=== PATIENT | male | born 1970 | race Caucasian/White ===

== ENCOUNTER 2017-04-07 11:46 | Inpatient (IN) | payer MEDICAID ==
[~2017-04-07] VITALS: Ht 180.3 cm; Wt 65.6 kg
[~2017-04-07 11:46] MED LIST: ALPR0.5T6 PO; ALPR1TAB2 PO; HYDR-3237 PO; METH-356 PO; METH40TA3 PO; NICO1PAT13 TD; OXYC5TAB3 PO; PREG100C PO; PREG25CA PO; TAMS-11 PO
[2017-04-07] MEDS ORDERED: HYDR-3307 PO (12:00)
[2017-04-07] MEDS ORDERED: KETAMINE 100 MG/ML, 5ML IV ONE (12:00)
[2017-04-07] MEDS ORDERED: FLUO10CA13 PO (12:00)
[2017-04-07] MEDS ORDERED: METH40TA3 PO (12:00)
[2017-04-07] MEDS ORDERED: FLUO40CA9 PO (12:00)
[2017-04-07] MEDS ORDERED: PREG200C PO (12:00)
[2017-04-07 12:32] LABS: HEMATOCRIT 40.8 % (39.2-51.8); HEMOGLOBIN 13.7 g/dL (13.7-18.0); WHITE BLOOD COUNT 10.7 x10^3/uL (3.4-10)
[2017-04-07 12:44] LABS: BLOOD UREA NITROGEN 17 mg/dL (7-18)
[2017-04-07 12:48] LABS: ASPARTATE AMINO TRANSFERASE 24 U/L (15-37)
[2017-04-07] MEDS ORDERED: FAMOTIDINE 20 MG/2 ML IVPush ONE (15:30)
[2017-04-07] MEDS ORDERED: TIZANIDINE 4MG TABLET PO ONE (16:00)
[2017-04-07 16:04] LABS: DAU SCREEN DISCLAIMER
[2017-04-07] MEDS ORDERED: FAMOTIDINE 20 MG/2 ML ONE (16:05)
[2017-04-07 16:42] VITALS: BP 130/77
[2017-04-07] MEDS ORDERED: BISACODYL 10 MG SUPP PR PRN ×2 (17:00→22:30)
[2017-04-07] MEDS ORDERED: ONDANSETRON 2MG/ML, 2ML IVPush PRN ×2 (17:00→22:30)
[2017-04-07] MEDS ORDERED: POLYETHYLENE GLYCOL 17 GM PACKET PO PRN (17:00)
[2017-04-07] MEDS ORDERED: PROMETHAZINE 25 MG/ML, 1ML IM PRN ×2 (17:00→22:30)
[2017-04-07] MEDS ORDERED: DOCUSATE 100 MG CAPSULE PO PRN ×2 (17:00→22:30)
[2017-04-07] MEDS ORDERED: ACETAMINOPHEN 325 MG TABLET PO PRN ×2 (17:00→22:30)
[2017-04-07] MEDS ORDERED: ENOXAPARIN 40 MG/0.4 ML SQ SCH (17:00)
[2017-04-07] MEDS ORDERED: methylPREDNISolone SOD SUCC 125 MG/2 ML IVPush SCH (17:00)
[2017-04-07] MEDS: TIZANIDINE 4MG TABLET PO SCH (17:26)
[2017-04-07] MEDS: HYDROcodone/APAP 10/325 MG TABLET PO PRN (17:26)
[2017-04-07 19:13] VITALS: BP 96/45
[2017-04-07] MEDS: FAMOTIDINE 20 MG TABLET PO SCH (21:37)
[2017-04-07] MEDS: PREGABALIN 200 MG CAPSULE PO SCH (21:37)
[2017-04-07 21:38] VITALS: BP 94/50
[2017-04-07 23:32] VITALS: BP 107/65
[2017-04-08 01:32] VITALS: BP 104/64
[2017-04-08] MEDS: TIZANIDINE 4MG TABLET PO SCH ×3 (01:34→16:34)
[2017-04-08 04:55] LABS: HEMATOCRIT 43.3 % (39.2-51.8); HEMOGLOBIN 14.6 g/dL (13.7-18.0); WHITE BLOOD COUNT 11.2 x10^3/uL (3.4-10)
[2017-04-08 05:07] LABS: BLOOD UREA NITROGEN 16 mg/dL (7-18)
[2017-04-08 05:10] LABS: ASPARTATE AMINO TRANSFERASE 15 U/L (15-37)
[2017-04-08 08:05] VITALS: BP 105/66
[2017-04-08] MEDS ORDERED: FLUOXETINE 10 MG CAP PO SCH (09:00)
[2017-04-08] MEDS ORDERED: SENNA/DOCUSATE TABLET PO SCH (09:00)
[2017-04-08] MEDS ORDERED: METHADONE 10 MG TABLET ONE (09:05)
[2017-04-08] MEDS: METHADONE 40 MG TABLET.SOL PO SCH (09:07)
[2017-04-08] MEDS: PREGABALIN 200 MG CAPSULE PO SCH ×3 (09:08→20:31)
[2017-04-08] MEDS: TAMSULOSIN 0.4 MG CAP.ER.24H PO SCH (09:08)
[2017-04-08] MEDS: FAMOTIDINE 20 MG TABLET PO SCH ×2 (09:08→20:31)
[2017-04-08] MEDS: SENNA/DOCUSATE TABLET PO SCH ×2 (09:09→10:03)
[2017-04-08] MEDS: FLUOXETINE 10 MG CAP PO SCH (09:09)
[2017-04-08 14:16] VITALS: BP 117/61
[2017-04-08] MEDS: HYDROcodone/APAP 10/325 MG TABLET PO PRN ×3 (14:20→21:11)
[2017-04-08] MEDS: ENOXAPARIN 40 MG/0.4 ML SQ SCH (16:34)
[2017-04-08 19:57] VITALS: BP 98/58
[2017-04-09 03:17] VITALS: BP 108/67
[2017-04-09] MEDS: TIZANIDINE 4MG TABLET PO SCH ×3 (03:46→16:51)
[2017-04-09 05:23] LABS: BLOOD UREA NITROGEN 26 mg/dL (7-18)
[2017-04-09 05:34] LABS: HEMATOCRIT 39.3 % (39.2-51.8); HEMOGLOBIN 13.3 g/dL (13.7-18.0); WHITE BLOOD COUNT 13.2 x10^3/uL (3.4-10)
[2017-04-09] MEDS: HYDROcodone/APAP 10/325 MG TABLET PO PRN ×3 (07:15→19:42)
[2017-04-09 07:36] VITALS: BP 112/71
[2017-04-09] MEDS ORDERED: METHADONE 10 MG TABLET ONE (10:01)
[2017-04-09] MEDS: TAMSULOSIN 0.4 MG CAP.ER.24H PO SCH (10:03)
[2017-04-09] MEDS: PREGABALIN 200 MG CAPSULE PO SCH ×3 (10:03→21:42)
[2017-04-09] MEDS: FAMOTIDINE 20 MG TABLET PO SCH ×2 (10:03→21:42)
[2017-04-09] MEDS: FLUOXETINE 10 MG CAP PO SCH (10:03)
[2017-04-09] MEDS: METHADONE 40 MG TABLET.SOL PO SCH (10:03)
[2017-04-09] MEDS: SENNA/DOCUSATE TABLET PO SCH (10:03)
[2017-04-09 12:04] VITALS: BP 118/65
[2017-04-09] MEDS: ENOXAPARIN 40 MG/0.4 ML SQ SCH (16:51)
[2017-04-09 21:32] VITALS: BP 118/71
[2017-04-09] MEDS: NICOTINE 14MG/24 HR PATCH.TD24 TD SCH (21:42)
[2017-04-09] MEDS ORDERED: OMNIPAQUE 350 MG/ML, 100ML BOTTLE ONE (22:35)
[2017-04-10] MEDS: HYDROcodone/APAP 10/325 MG TABLET PO PRN ×3 (01:45→17:16)
[2017-04-10] MEDS: TIZANIDINE 4MG TABLET PO SCH ×3 (01:45→17:11)
[2017-04-10 02:22] VITALS: BP 122/73
[2017-04-10 05:00] LABS: HEMATOCRIT 40.4 % (39.2-51.8); HEMOGLOBIN 13.4 g/dL (13.7-18.0); WHITE BLOOD COUNT 16.3 x10^3/uL (3.4-10)
[2017-04-10 05:16] LABS: BLOOD UREA NITROGEN 25 mg/dL (7-18)
[2017-04-10 07:28] VITALS: BP 122/72
[2017-04-10] MEDS: FLUOXETINE 10 MG CAP PO SCH (10:17)
[2017-04-10] MEDS: PREGABALIN 200 MG CAPSULE PO SCH ×3 (10:17→20:45)
[2017-04-10] MEDS: TAMSULOSIN 0.4 MG CAP.ER.24H PO SCH (10:17)
[2017-04-10] MEDS: METHADONE 40 MG TABLET.SOL PO SCH (10:18)
[2017-04-10] MEDS: SENNA/DOCUSATE TABLET PO SCH (10:18)
[2017-04-10] MEDS: FAMOTIDINE 20 MG TABLET PO SCH (10:18)
[2017-04-10 13:00] VITALS: BP 113/77
[2017-04-10 13:29] VITALS: BP 131/79
[2017-04-10] MEDS: POLYETHYLENE GLYCOL 17 GM PACKET PO SCH (15:58)
[2017-04-10] MEDS ORDERED: BISACODYL 5 MG EC TABLET PO PRN (16:00)
[2017-04-10] MEDS ORDERED: MAGNESIUM HYDROXIDE 8%, 30ML UDC PO PRN (16:00)
[2017-04-10] MEDS: ENOXAPARIN 40 MG/0.4 ML SQ SCH (17:11)
[2017-04-10 19:14] VITALS: BP 135/83
[2017-04-10] MEDS: NICOTINE 14MG/24 HR PATCH.TD24 TD SCH (20:46)
[2017-04-11 00:21] VITALS: BP 126/81
[2017-04-11] MEDS: TIZANIDINE 4MG TABLET PO SCH ×3 (00:37→18:29)
[2017-04-11] MEDS: HYDROcodone/APAP 10/325 MG TABLET PO PRN ×4 (00:38→21:18)
[2017-04-11 05:55] LABS: HEMATOCRIT 41.9 % (39.2-51.8); WHITE BLOOD COUNT 12.1 x10^3/uL (3.4-10)
[2017-04-11 06:09] LABS: BLOOD UREA NITROGEN 25 mg/dL (7-18)
[2017-04-11 07:50] VITALS: BP 139/88
[2017-04-11] MEDS ORDERED: BISACODYL 10 MG SUPP PR SCH (09:00)
[2017-04-11] MEDS: SENNA/DOCUSATE TABLET PO SCH (09:47)
[2017-04-11] MEDS: METHADONE 40 MG TABLET.SOL PO SCH (09:47)
[2017-04-11] MEDS: PREGABALIN 200 MG CAPSULE PO SCH ×3 (09:48→20:36)
[2017-04-11] MEDS: POLYETHYLENE GLYCOL 17 GM PACKET PO SCH (09:48)
[2017-04-11] MEDS: TAMSULOSIN 0.4 MG CAP.ER.24H PO SCH (09:48)
[2017-04-11] MEDS: FLUOXETINE 10 MG CAP PO SCH (09:48)
[2017-04-11 14:17] VITALS: BP 122/81
[2017-04-11] MEDS: ENOXAPARIN 40 MG/0.4 ML SQ SCH (18:30)
[2017-04-11 18:55] VITALS: BP 150/88
[2017-04-11] MEDS: NICOTINE 14MG/24 HR PATCH.TD24 TD SCH (20:35)
[2017-04-12 03:08] VITALS: BP 150/88
[2017-04-12] MEDS: TIZANIDINE 4MG TABLET PO SCH ×3 (03:20→21:14)
[2017-04-12] MEDS: HYDROcodone/APAP 10/325 MG TABLET PO PRN ×3 (03:20→16:05)
[2017-04-12 07:30] LABS: BLOOD UREA NITROGEN 27 mg/dL (7-18)
[2017-04-12 07:31] LABS: HEMATOCRIT 43.8 % (39.2-51.8); HEMOGLOBIN 14.7 g/dL (13.7-18.0); WHITE BLOOD COUNT 8.5 x10^3/uL (3.4-10)
[2017-04-12] MEDS: PREGABALIN 200 MG CAPSULE PO SCH ×3 (08:10→21:14)
[2017-04-12] MEDS: POLYETHYLENE GLYCOL 17 GM PACKET PO SCH (08:11)
[2017-04-12] MEDS: TAMSULOSIN 0.4 MG CAP.ER.24H PO SCH (08:11)
[2017-04-12] MEDS: SENNA/DOCUSATE TABLET PO SCH (08:11)
[2017-04-12] MEDS: FLUOXETINE 10 MG CAP PO SCH (08:11)
[2017-04-12 08:50] VITALS: BP 146/84
[2017-04-12] MEDS: METHADONE 40 MG TABLET.SOL PO SCH (08:52)
[2017-04-12 12:55] VITALS: BP 128/79
[2017-04-12] MEDS: ENOXAPARIN 40 MG/0.4 ML SQ SCH (16:05)
[2017-04-12 20:33] VITALS: BP 131/77
[2017-04-12] MEDS: NICOTINE 14MG/24 HR PATCH.TD24 TD SCH (21:14)
[2017-04-13 02:24] VITALS: BP 138/97
[2017-04-13] MEDS: TIZANIDINE 4MG TABLET PO SCH ×2 (03:45→11:38)
[2017-04-13] MEDS: HYDROcodone/APAP 10/325 MG TABLET PO PRN ×3 (05:10→15:27)
[2017-04-13 07:39] VITALS: BP 159/91
[2017-04-13] MEDS: METHADONE 40 MG TABLET.SOL PO SCH (09:00)
[2017-04-13] MEDS ORDERED: AMLODIPINE 5 MG TABLET PO SCH (10:00)
[2017-04-13] MEDS: PREGABALIN 200 MG CAPSULE PO SCH ×2 (10:04→15:27)
[2017-04-13] MEDS: POLYETHYLENE GLYCOL 17 GM PACKET PO SCH (10:04)
[2017-04-13] MEDS: SENNA/DOCUSATE TABLET PO SCH (10:08)
[2017-04-13] MEDS: TAMSULOSIN 0.4 MG CAP.ER.24H PO SCH (10:08)
[2017-04-13] MEDS: FLUOXETINE 10 MG CAP PO SCH (10:08)
[2017-04-13] MEDS ORDERED: PRED20TA PO (12:28)
[2017-04-13] MEDS ORDERED: AMLO5TAB2 PO (12:28)
== END 2017-04-13 16:41 | disposition home health service (06) | DRG 58 ==
LOC: ED 13:48 → 4NOR 14:23 → ED 14:23 → SUATTDRO 15:01 → 4NOR 16:30 → 4WST 04-09 18:50
PROVIDERS: ADMIT Internal Medicine; ATTEND Internal Medicine
DX: G35 Multiple sclerosis (principal); G92 Toxic encephalopathy; R53.2 Functional quadriplegia; F11.20 Opioid dependence, uncomplicated; G89.29 Other chronic pain; K59.00 Constipation, unspecified; R62.7 Adult failure to thrive; M54.9 Dorsalgia, unspecified; T50.905A Adverse effect of unspecified drugs, medicaments and biological substances, initial encounter; Y92.89 Other specified places as the place of occurrence of the external cause; Z87.891 Personal history of nicotine dependence; Z88.0 Allergy status to penicillin; Z88.6 Allergy status to analgesic agent
CPT/HCPCS: 36415; 71010; 74177; 80048; 80053; 80307; 81003; 85025; 93005; 99285; J1650; J2930; Q9967; G0479; J7512; S0028

== ENCOUNTER 2017-06-05 14:27 | Inpatient (IN) | payer MEDICAID ==
[~2017-06-05] VITALS: Ht 180.3 cm; Wt 63.9 kg
[~2017-06-05 14:27] MED LIST changes: +AMLO5TAB2 PO; +FLUO10CA13 PO; +FLUO40CA9 PO; +HYDR-3307 PO; +NICO-486 TD; -NICO1PAT13 TD; +PRED20TA PO; +PREG200C PO
[2017-06-05] MEDS ORDERED: ZOLP-413 PO (14:32)
[2017-06-05] MEDS ORDERED: SODIUM CHLORIDE FLUSH 10ML SYR IVF ONE (15:00)
[2017-06-05 15:14] LABS: HEMATOCRIT 40.2 % (39.2-51.8); HEMOGLOBIN 13.5 g/dL (13.7-18.0); WHITE BLOOD COUNT 11.3 x10^3/uL (3.4-10)
[2017-06-05 15:27] LABS: ASPARTATE AMINO TRANSFERASE 31 U/L (15-37); BLOOD UREA NITROGEN 11 mg/dL (7-18)
[2017-06-05 16:37] LABS: PATH.CAST-FLAG NOT PRESENT; SPERM-FLAG NOT PRESENT; SRC-FLAG NOT PRESENT; XTAL-FLAG NOT PRESENT; YLC-FLAG NOT PRESENT
[2017-06-05] MEDS ORDERED: CEFTRIAXONE PMX 1GM/50ML 50 ML ONE (16:52)
[2017-06-05] MEDS ORDERED: CEFTRIAXONE PMX 1GM/50ML 50 ML IVPB ONE (17:00)
[2017-06-05] MEDS ORDERED: SODIUM CHLORIDE FLUSH 10ML SYR IVF PRN (18:00)
[2017-06-05] MEDS ORDERED: ONDANSETRON 2MG/ML, 2ML IVPush PRN (18:30)
[2017-06-05] MEDS ORDERED: POLYETHYLENE GLYCOL 17 GM PACKET PO PRN (18:30)
[2017-06-05] MEDS ORDERED: BISACODYL 10 MG SUPP PR PRN (18:30)
[2017-06-05] MEDS ORDERED: ACETAMINOPHEN 325 MG TABLET PO PRN (18:30)
[2017-06-05] MEDS: CEFTRIAXONE PMX 1GM/50ML 50 ML IV SCH (19:00)
[2017-06-05 19:31] VITALS: BP 110/71
[2017-06-05] MEDS: SODIUM CHLORIDE 0.9% 1,000 ML IV SCH (22:07)
[2017-06-05] MEDS: NICOTINE 14MG/24 HR PATCH.TD24 TD SCH (22:07)
[2017-06-05] MEDS: PREGABALIN 200 MG CAPSULE PO SCH (22:07)
[2017-06-05] MEDS: HEPARIN 5,000 UNITS/ML, 1ML SQ SCH (22:08)
[2017-06-05] MEDS: HYDROcodone/APAP 10/325 MG TABLET PO PRN (22:11)
[2017-06-05] MEDS: ZOLPIDEM 5MG TABLET PO SCH (22:11)
[2017-06-06 00:20] VITALS: BP 110/70
[2017-06-06 02:17] VITALS: BP 102/67
[2017-06-06] MEDS: HYDROcodone/APAP 10/325 MG TABLET PO PRN ×3 (04:34→17:02)
[2017-06-06 05:13] LABS: HEMATOCRIT 38.2 % (39.2-51.8); WHITE BLOOD COUNT 10.8 x10^3/uL (3.4-10)
[2017-06-06 05:35] LABS: ASPARTATE AMINO TRANSFERASE 41 U/L (15-37); BLOOD UREA NITROGEN 10 mg/dL (7-18)
[2017-06-06 08:00] VITALS: BP 96/69
[2017-06-06] MEDS: HEPARIN 5,000 UNITS/ML, 1ML SQ SCH ×3 (08:57→23:00)
[2017-06-06] MEDS: FLUOXETINE 20 MG CAPSULE PO SCH (08:57)
[2017-06-06] MEDS: PREGABALIN 200 MG CAPSULE PO SCH ×3 (08:57→21:48)
[2017-06-06] MEDS: TAMSULOSIN 0.4 MG CAP.ER.24H PO SCH (08:58)
[2017-06-06] MEDS: SENNA/DOCUSATE TABLET PO SCH (08:58)
[2017-06-06] MEDS ORDERED: AMLODIPINE 5 MG TABLET PO SCH (09:00)
[2017-06-06] MEDS: METHADONE 40 MG TABLET.SOL PO SCH (09:01)
[2017-06-06] MEDS: SODIUM CHLORIDE 0.9% 1,000 ML IV SCH ×2 (09:01→21:48)
[2017-06-06 13:30] VITALS: BP 114/76
[2017-06-06] MEDS: NICOTINE 14MG/24 HR PATCH.TD24 TD SCH (18:14)
[2017-06-06 19:13] VITALS: BP 103/65
[2017-06-06] MEDS: CEFTRIAXONE PMX 1GM/50ML 50 ML IV SCH (19:23)
[2017-06-06] MEDS: ZOLPIDEM 5MG TABLET PO SCH (21:48)
[2017-06-07 00:34] VITALS: BP 129/84
[2017-06-07] MEDS: HYDROcodone/APAP 10/325 MG TABLET PO PRN ×4 (00:55→23:54)
[2017-06-07 05:24] LABS: HEMATOCRIT 39.2 % (39.2-51.8); HEMOGLOBIN 13.2 g/dL (13.7-18.0); WHITE BLOOD COUNT 8.4 x10^3/uL (3.4-10)
[2017-06-07 05:32] LABS: BLOOD UREA NITROGEN 12 mg/dL (7-18)
[2017-06-07 06:50] VITALS: BP 115/83
[2017-06-07] MEDS: SENNA/DOCUSATE TABLET PO SCH (08:57)
[2017-06-07] MEDS: PREGABALIN 200 MG CAPSULE PO SCH ×3 (08:57→20:19)
[2017-06-07] MEDS: FLUOXETINE 20 MG CAPSULE PO SCH (08:57)
[2017-06-07] MEDS: METHADONE 40 MG TABLET.SOL PO SCH (08:57)
[2017-06-07] MEDS: HEPARIN 5,000 UNITS/ML, 1ML SQ SCH ×3 (08:58→20:20)
[2017-06-07] MEDS: TAMSULOSIN 0.4 MG CAP.ER.24H PO SCH (08:58)
[2017-06-07 14:14] VITALS: BP 111/73
[2017-06-07] MEDS: NICOTINE 14MG/24 HR PATCH.TD24 TD SCH (16:42)
[2017-06-07 19:45] VITALS: BP 128/84
[2017-06-07] MEDS: ZOLPIDEM 5MG TABLET PO SCH (20:19)
[2017-06-07] MEDS: CEFDINIR 300 MG CAPSULE PO SCH (20:19)
[2017-06-08 05:02] VITALS: BP 131/88
[2017-06-08 07:30] VITALS: BP 138/89
[2017-06-08] MEDS: SENNA/DOCUSATE TABLET PO SCH (09:04)
[2017-06-08] MEDS: HEPARIN 5,000 UNITS/ML, 1ML SQ SCH ×2 (09:04→15:00)
[2017-06-08] MEDS: HYDROcodone/APAP 10/325 MG TABLET PO PRN (09:04)
[2017-06-08] MEDS: METHADONE 40 MG TABLET.SOL PO SCH (09:04)
[2017-06-08] MEDS: FLUOXETINE 20 MG CAPSULE PO SCH (09:05)
[2017-06-08] MEDS: TAMSULOSIN 0.4 MG CAP.ER.24H PO SCH (09:05)
[2017-06-08] MEDS: CEFDINIR 300 MG CAPSULE PO SCH (09:05)
[2017-06-08] MEDS: PREGABALIN 200 MG CAPSULE PO SCH (09:05)
[2017-06-08] MEDS ORDERED: CIPR500T87 PO (12:12)
[2017-06-08] MEDS ORDERED: LACT1CAP24 PO (12:12)
[2017-06-08] MEDS ORDERED: NICO-486 TD (12:12)
[2017-06-08 13:20] VITALS: BP 117/77
== END 2017-06-08 16:07 | disposition home or self-care (01) | DRG 689 ==
LOC: ED 16:38 → EDIP 17:39 → 3NE 18:47
PROVIDERS: ADMIT Family Medicine; ATTEND Internal Medicine
DX: N39.0 Urinary tract infection, site not specified (principal); R53.2 Functional quadriplegia; I95.9 Hypotension, unspecified; E44.0 Moderate protein-calorie malnutrition; F11.20 Opioid dependence, uncomplicated; G35 Multiple sclerosis; Z68.1 Body mass index [BMI] 19.9 or less, adult; R62.7 Adult failure to thrive; M54.9 Dorsalgia, unspecified; G89.29 Other chronic pain; F17.200 Nicotine dependence, unspecified, uncomplicated; B96.20 Unspecified Escherichia coli [E. coli] as the cause of diseases classified elsewhere; Z88.6 Allergy status to analgesic agent; Z88.8 Allergy status to other drugs, medicaments and biological substances; Z71.6 Tobacco abuse counseling; Z87.440 Personal history of urinary (tract) infections; Z99.3 Dependence on wheelchair; Z83.3 Family history of diabetes mellitus
CPT/HCPCS: 36415; 71010; 80048; 80053; 81001; 83605; 85025; 85610; 85730; 87040; 87077; 87086; 87186; 93005; J0696; J1644; J7030

== ENCOUNTER 2017-07-16 07:10 | Emergency (ER) | payer MEDICAID ==
[~2017-07-16] VITALS: Ht 180.3 cm; Wt 73.0 kg
[~2017-07-16 07:10] MED LIST changes: +CIPR500T87 PO; +LACT1CAP24 PO; +ZOLP-413 PO
[2017-07-16 07:44] LABS: HEMATOCRIT 42.2 % (39.2-51.8); HEMOGLOBIN 14.3 g/dL (13.7-18.0); WHITE BLOOD COUNT 9.2 x10^3/uL (3.4-10)
[2017-07-16 07:56] LABS: BLOOD UREA NITROGEN 15 mg/dL (7-18)
[2017-07-16] MEDS ORDERED: LORazepam 2 MG/ML, 1ML ONE (08:19)
[2017-07-16] MEDS ORDERED: LORazepam 2 MG/ML, 1ML IM ONE (08:30)
[2017-07-16] MEDS ORDERED: LIDOCAINE 1%, 10ML ONE (10:08)
[2017-07-16 10:27] VITALS: BP 120/92
== END 2017-07-16 11:39 | disposition home or self-care (01) ==
LOC: ED 09:22
DX: S01.01XA Laceration without foreign body of scalp, initial encounter (principal); F15.10 Other stimulant abuse, uncomplicated; F17.210 Nicotine dependence, cigarettes, uncomplicated; G62.9 Polyneuropathy, unspecified
CPT/HCPCS: 12001; 36415; 70450; 80048; 81003; 82040; 85025; 96372; 99285; J2060

== ENCOUNTER 2017-10-04 19:37 | Inpatient (IN) | payer MEDICARE, MEDICAID ==
[~2017-10-04] VITALS: Ht 180.3 cm; Wt 70.5 kg
[~2017-10-04 19:37] MED LIST changes: +CEPH-375 PO; +CHOL10003 PO; +GABA300C10 PO
[2017-10-04 21:40] LABS: BASOPHILS # (AUTO) 0.06 x10^3/uL (0-0.1); BASOPHILS % (AUTO) 1 % (0-1); EOSINOPHILS # (AUTO) 0.41 x10^3/uL (0-0.4); EOSINOPHILS % (AUTO) 7 % (1-7); LYMPHOCYTES # (AUTO) 2.61 x10^3/uL (1-3.4); LYMPHOCYTES % (AUTO) 44 % (22-44); MD NO; MEAN CORPUSCULAR HEMOGLOBIN 29.1 pg (27.5-34.5); MEAN CORPUSCULAR HGB CONC 33.5 g/dL (33.2-36.2); MEAN PLATELET VOLUME 9.7 fL (7.4-10.4); MONOCYTES # (AUTO) 0.74 x10^3/uL (0.2-0.8); MONOCYTES % (AUTO) 13 % (2-9); NEUTROPHILS # (AUTO) 2.09 x10^3/uL (1.8-6.8); NEUTROPHILS % (AUTO) 35 % (42-75); PLATELET COUNT 192 x10^3/uL (130-400); RED BLOOD COUNT 4.75 x10^6/uL (4.38-5.82); RED CELL DISTRIBUTION WIDTH 14.2 % (9.4-14.8)
[2017-10-04 21:44] LABS: ALBUMIN 3.5 g/dL (3.4-5.0); ANION GAP 6 mmol/L (5-15); CHLORIDE 106 mmol/L (98-107); CREATININE 0.78 mg/dL (0.7-1.3)
[2017-10-04 21:48] LABS: TROPONIN I < 0.015 ng/mL (0.000-0.045)
[2017-10-04 21:55] LABS: MICROSCOPIC AUTO
[2017-10-04 22:01] LABS: AMPHETAMINE SCREEN, URINE Negative (Negative); BARBITURATE SCREEN, URINE Negative (Negative); BENZODIAZEPINE SCREEN, URINE Positive (Negative); CANNABINOID SCREEN, URINE Positive (Negative); COCAINE SCREEN, URINE Negative (Negative); METHADONE SCREEN, URINE Positive (Negative); OPIATE SCREEN, URINE Positive (Negative)
[2017-10-04 22:10] LABS: CULTURE INDICATED? YES
[2017-10-04] MEDS ORDERED: CEFTRIAXONE PMX 1GM/50ML 50 ML ONE (22:44)
[2017-10-04] MEDS ORDERED: SODIUM CHLORIDE 0.9%, 500ML IVBOLUS ONE (23:00)
[2017-10-04] MEDS ORDERED: CEFTRIAXONE PMX 1GM/50ML 50 ML IVPB ONE (23:00)
[2017-10-04] MEDS ORDERED: ACETAMINOPHEN 325 MG TABLET PO PRN (23:30)
[2017-10-04] MEDS ORDERED: ONDANSETRON 2MG/ML, 2ML IVPush PRN (23:30)
[2017-10-04 23:39] VITALS: BP 144/88
[2017-10-05 01:20] VITALS: BP 124/84
[2017-10-05] MEDS: SODIUM CHLORIDE 0.9% 1,000 ML IV SCH ×4 (02:46→23:40)
[2017-10-05] MEDS: ENOXAPARIN 40 MG/0.4 ML SQ SCH (06:41)
[2017-10-05 07:34] VITALS: BP 143/76
[2017-10-05] MEDS: FLUOXETINE HCL 20 MG CAPSULE PO SCH (08:36)
[2017-10-05] MEDS: CHOLECALCIFEROL 1,000 UNIT TABLET PO SCH (08:36)
[2017-10-05] MEDS: GABAPENTIN 300 MG CAPSULE PO SCH ×3 (08:36→21:10)
[2017-10-05] MEDS: TAMSULOSIN 0.4 MG CAP.ER.24H PO SCH (08:36)
[2017-10-05] MEDS: PREGABALIN 200 MG CAPSULE PO SCH ×3 (08:36→21:10)
[2017-10-05] MEDS: POLYETHYLENE GLYCOL 17 GM PACKET PO SCH (08:37)
[2017-10-05] MEDS: LACTULOSE 10 GM/15 ML UDC PO SCH ×2 (08:37→21:10)
[2017-10-05] MEDS: METHADONE 40 MG TABLET.SOL PO SCH (08:37)
[2017-10-05] MEDS: AMLODIPINE 5 MG TABLET PO SCH (08:41)
[2017-10-05 12:25] VITALS: BP 132/79
[2017-10-05] MEDS ORDERED: CEFTRIAXONE PMX 2GM/50ML 50 ML IV SCH (12:30)
[2017-10-05 20:04] VITALS: BP 130/81
[2017-10-05] MEDS ORDERED: CEFTRIAXONE PMX 1GM/50ML 50 ML IV SCH (23:00)
[2017-10-06 00:46] VITALS: BP 153/88
[2017-10-06 05:42] LABS: BASOPHILS # (AUTO) 0.05 x10^3/uL (0-0.1); BASOPHILS % (AUTO) 1 % (0-1); EOSINOPHILS # (AUTO) 0.32 x10^3/uL (0-0.4); EOSINOPHILS % (AUTO) 6 % (1-7); LYMPHOCYTES # (AUTO) 2.15 x10^3/uL (1-3.4); LYMPHOCYTES % (AUTO) 36 % (22-44); MD NO; MEAN CORPUSCULAR HEMOGLOBIN 29.3 pg (27.5-34.5); MEAN CORPUSCULAR HGB CONC 33.7 g/dL (33.2-36.2); MEAN CORPUSCULAR VOLUME 87.1 fL (81-97); MEAN PLATELET VOLUME 8.9 fL (7.4-10.4); MONOCYTES # (AUTO) 0.71 x10^3/uL (0.2-0.8); MONOCYTES % (AUTO) 12 % (2-9); NEUTROPHILS # (AUTO) 2.73 x10^3/uL (1.8-6.8); NEUTROPHILS % (AUTO) 46 % (42-75); PLATELET COUNT 171 x10^3/uL (130-400); RED BLOOD COUNT 4.32 x10^6/uL (4.38-5.82); RED CELL DISTRIBUTION WIDTH 13.8 % (9.4-14.8)
[2017-10-06] MEDS: ENOXAPARIN 40 MG/0.4 ML SQ SCH (05:43)
[2017-10-06] MEDS: SODIUM CHLORIDE 0.9% 1,000 ML IV SCH ×2 (05:43→13:02)
[2017-10-06 05:55] LABS: ANION GAP 7 mmol/L (5-15); CALCIUM 8.1 mg/dL (8.5-10.1); CHLORIDE 110 mmol/L (98-107)
[2017-10-06 06:00] LABS: ALANINE AMINOTRANSFERASE 20 U/L (12-78); ALKALINE PHOSPHATASE 55 U/L (45-117); BILIRUBIN,TOTAL 0.5 mg/dL (0.2-1.0); CREATININE 0.76 mg/dL (0.7-1.3); TOTAL PROTEIN 5.6 g/dL (6.4-8.2)
[2017-10-06 08:13] VITALS: BP 128/89
[2017-10-06] MEDS: PREGABALIN 200 MG CAPSULE PO SCH ×3 (08:36→21:28)
[2017-10-06] MEDS: METHADONE 40 MG TABLET.SOL PO SCH (08:36)
[2017-10-06] MEDS: POLYETHYLENE GLYCOL 17 GM PACKET PO SCH (08:36)
[2017-10-06] MEDS: GABAPENTIN 300 MG CAPSULE PO SCH ×3 (08:37→21:29)
[2017-10-06] MEDS: CHOLECALCIFEROL 1,000 UNIT TABLET PO SCH (08:37)
[2017-10-06] MEDS: TAMSULOSIN 0.4 MG CAP.ER.24H PO SCH (08:38)
[2017-10-06] MEDS: AMLODIPINE 5 MG TABLET PO SCH (08:38)
[2017-10-06] MEDS: FLUOXETINE HCL 20 MG CAPSULE PO SCH (08:38)
[2017-10-06] MEDS: LACTULOSE 10 GM/15 ML UDC PO SCH ×2 (08:43→21:29)
[2017-10-06 12:51] VITALS: BP 111/68
[2017-10-06] MEDS: CEFTRIAXONE 2 GM in DEXTROSE 5% 50 ML IV SCH (13:02)
[2017-10-06 19:47] VITALS: BP 105/63
[2017-10-07 01:05] VITALS: BP 146/83
[2017-10-07] MEDS: SODIUM CHLORIDE 0.9% 1,000 ML IV SCH ×4 (01:11→23:53)
[2017-10-07] MEDS: ENOXAPARIN 40 MG/0.4 ML SQ SCH (06:04)
[2017-10-07 06:29] VITALS: BP 134/81
[2017-10-07] MEDS: LACTULOSE 10 GM/15 ML UDC PO SCH ×2 (08:09→20:18)
[2017-10-07] MEDS: AMLODIPINE 5 MG TABLET PO SCH (08:10)
[2017-10-07] MEDS: POLYETHYLENE GLYCOL 17 GM PACKET PO SCH (08:10)
[2017-10-07] MEDS: PREGABALIN 200 MG CAPSULE PO SCH ×3 (08:10→20:18)
[2017-10-07] MEDS: TAMSULOSIN 0.4 MG CAP.ER.24H PO SCH (08:10)
[2017-10-07] MEDS: CHOLECALCIFEROL 1,000 UNIT TABLET PO SCH (08:10)
[2017-10-07] MEDS: METHADONE 40 MG TABLET.SOL PO SCH (08:11)
[2017-10-07] MEDS: FLUOXETINE HCL 20 MG CAPSULE PO SCH (08:11)
[2017-10-07] MEDS: GABAPENTIN 300 MG CAPSULE PO SCH ×3 (08:11→20:18)
[2017-10-07 12:00] VITALS: BP 132/85
[2017-10-07] MEDS: CEFTRIAXONE 2 GM in DEXTROSE 5% 50 ML IV SCH (12:40)
[2017-10-07] MEDS ORDERED: BISACODYL 10 MG SUPP PR PRN (14:30)
[2017-10-07] MEDS ORDERED: MAGNESIUM CITRATE 300ML ORAL SOL PO PRN ×2 (14:30)
[2017-10-07] MEDS ORDERED: POLYETHYLENE GLYCOL 17 GM PACKET PO PRN (14:30)
[2017-10-07 19:33] VITALS: BP 105/65
[2017-10-08 02:34] VITALS: BP 113/70
[2017-10-08] MEDS: ENOXAPARIN 40 MG/0.4 ML SQ SCH (05:53)
[2017-10-08] MEDS: SODIUM CHLORIDE 0.9% 1,000 ML IV SCH ×2 (05:53→14:32)
[2017-10-08 06:13] LABS: BASOPHILS # (AUTO) 0.05 x10^3/uL (0-0.1); BASOPHILS % (AUTO) 1 % (0-1); EOSINOPHILS # (AUTO) 0.35 x10^3/uL (0-0.4); EOSINOPHILS % (AUTO) 7 % (1-7); LYMPHOCYTES # (AUTO) 1.99 x10^3/uL (1-3.4); LYMPHOCYTES % (AUTO) 38 % (22-44); MD NO; MEAN CORPUSCULAR HEMOGLOBIN 29.3 pg (27.5-34.5); MEAN CORPUSCULAR HGB CONC 33.9 g/dL (33.2-36.2); MEAN CORPUSCULAR VOLUME 86.6 fL (81-97); MEAN PLATELET VOLUME 8.7 fL (7.4-10.4); MONOCYTES # (AUTO) 0.64 x10^3/uL (0.2-0.8); MONOCYTES % (AUTO) 12 % (2-9); NEUTROPHILS % (AUTO) 42 % (42-75); PLATELET COUNT 168 x10^3/uL (130-400); RED CELL DISTRIBUTION WIDTH 14.4 % (9.4-14.8)
[2017-10-08 06:21] LABS: ALBUMIN 3.1 g/dL (3.4-5.0); ANION GAP 6 mmol/L (5-15); CALCIUM 8.2 mg/dL (8.5-10.1); CHLORIDE 109 mmol/L (98-107)
[2017-10-08 06:24] LABS: ALANINE AMINOTRANSFERASE 14 U/L (12-78); ALKALINE PHOSPHATASE 54 U/L (45-117); BILIRUBIN,TOTAL 0.6 mg/dL (0.2-1.0); CREATININE 0.67 mg/dL (0.7-1.3); TOTAL PROTEIN 5.7 g/dL (6.4-8.2)
[2017-10-08 07:10] VITALS: BP 122/68
[2017-10-08] MEDS: POLYETHYLENE GLYCOL 17 GM PACKET PO SCH (08:18)
[2017-10-08] MEDS: TAMSULOSIN 0.4 MG CAP.ER.24H PO SCH (08:18)
[2017-10-08] MEDS: CHOLECALCIFEROL 1,000 UNIT TABLET PO SCH (08:19)
[2017-10-08] MEDS: GABAPENTIN 300 MG CAPSULE PO SCH ×3 (08:19→19:55)
[2017-10-08] MEDS: PREGABALIN 200 MG CAPSULE PO SCH ×3 (08:19→19:54)
[2017-10-08] MEDS: AMLODIPINE 5 MG TABLET PO SCH (08:19)
[2017-10-08] MEDS: FLUOXETINE HCL 20 MG CAPSULE PO SCH (08:19)
[2017-10-08] MEDS: LACTULOSE 10 GM/15 ML UDC PO SCH ×2 (08:22→19:54)
[2017-10-08] MEDS: METHADONE 40 MG TABLET.SOL PO SCH (08:23)
[2017-10-08 12:47] VITALS: BP 128/80
[2017-10-08] MEDS: CEFTRIAXONE 2 GM in DEXTROSE 5% 50 ML IV SCH (14:25)
[2017-10-08] MEDS: AMPICILLIN/SULBACTAM 3 GM in SODIUM CHLORIDE 0.9% 100 ML IV SCH (17:11)
[2017-10-08 20:03] VITALS: BP 105/65
[2017-10-09] MEDS: AMPICILLIN/SULBACTAM 3 GM in SODIUM CHLORIDE 0.9% 100 ML IV SCH ×3 (01:03→13:39)
[2017-10-09] MEDS: SODIUM CHLORIDE 0.9% 1,000 ML IV SCH ×2 (01:03→03:18)
[2017-10-09 01:41] VITALS: BP 120/70
[2017-10-09 06:58] VITALS: BP 102/66
[2017-10-09] MEDS: ENOXAPARIN 40 MG/0.4 ML SQ SCH (07:26)
[2017-10-09] MEDS ORDERED: METHADONE 10 MG TABLET ONE (08:51)
[2017-10-09] MEDS: METHADONE 40 MG TABLET.SOL PO SCH (08:54)
[2017-10-09] MEDS: TAMSULOSIN 0.4 MG CAP.ER.24H PO SCH (08:54)
[2017-10-09] MEDS: FLUOXETINE HCL 20 MG CAPSULE PO SCH (08:55)
[2017-10-09] MEDS: CHOLECALCIFEROL 1,000 UNIT TABLET PO SCH (08:55)
[2017-10-09] MEDS: GABAPENTIN 300 MG CAPSULE PO SCH ×2 (08:55→15:36)
[2017-10-09] MEDS: PREGABALIN 200 MG CAPSULE PO SCH ×2 (08:55→15:36)
[2017-10-09] MEDS: AMLODIPINE 5 MG TABLET PO SCH (08:56)
[2017-10-09] MEDS: LACTULOSE 10 GM/15 ML UDC PO SCH (08:56)
[2017-10-09] MEDS: POLYETHYLENE GLYCOL 17 GM PACKET PO SCH (08:56)
[2017-10-09 12:00] VITALS: BP 124/77
[2017-10-09] MEDS ORDERED: ACET325T14 PO (12:58)
[2017-10-09] MEDS ORDERED: AMOX1TAB64 PO (12:58)
== END 2017-10-09 16:15 | DRG 58 ==
LOC: ED 22:18 → EDIP 22:38 → 4NOR 23:35
PROVIDERS: ADMIT Hospitalist; ATTEND Hospitalist
PROC: 0T9B70Z Drainage of Bladder with Drainage Device, Via Natural or Artificial Opening (ICD-10-PCS; principal; 2017-10-04)
DX: G35 Multiple sclerosis (principal); R53.2 Functional quadriplegia; F11.20 Opioid dependence, uncomplicated; N30.90 Cystitis, unspecified without hematuria; W05.0XXA Fall from non-moving wheelchair, initial encounter; K59.00 Constipation, unspecified; G89.29 Other chronic pain; D64.9 Anemia, unspecified; Z99.3 Dependence on wheelchair; Y93.89 Activity, other specified; Y92.89 Other specified places as the place of occurrence of the external cause; Y99.8 Other external cause status; B95.2 Enterococcus as the cause of diseases classified elsewhere; Z80.1 Family history of malignant neoplasm of trachea, bronchus and lung; Z83.3 Family history of diabetes mellitus; Z87.440 Personal history of urinary (tract) infections; Z87.891 Personal history of nicotine dependence; G62.9 Polyneuropathy, unspecified; Z88.6 Allergy status to analgesic agent; Z91.018 Allergy to other foods
CPT/HCPCS: 36415; 74018; 80048; 80053; 80307; 81001; 82040; 83605; 83735; 84100; 84484; 85025; 87040; 87077; 87086; 87186; 96361; 99285; J0295; J0696; J1650; J7030; J7040

== ENCOUNTER 2018-08-27 19:43 | Inpatient (IN) | payer MEDICARE, MEDICAID ==
[~2018-08-27] VITALS: Ht 177.8 cm; Wt 64.6 kg
[~2018-08-27 19:43] MED LIST changes: +ACET325T14 PO; +AMLO-150 PO; -AMLO5TAB2 PO; +AMOX1TAB64 PO; -METH-356 PO; +METH10TA2 PO
[2018-08-27] MEDS ORDERED: ASPIRIN 81 MG TABLET CHEW PO ONE (20:00)
[2018-08-27] MEDS ORDERED: ASPIRIN 81 MG TABLET CHEW ONE (21:03)
--- NOTE | 2018-08-27 21:04 | NUR ---
FROM LOBBY TO ROOM AT THIS TIME
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
[2018-08-27 21:17] LABS: BASOPHILS # (AUTO) 0.07 x10^3/uL (0-0.1); BASOPHILS % (AUTO) 1 % (0-1); EOSINOPHILS # (AUTO) 0.23 x10^3/uL (0-0.4); EOSINOPHILS % (AUTO) 2 % (1-7); LYMPHOCYTES # (AUTO) 2.58 x10^3/uL (1-3.4); LYMPHOCYTES % (AUTO) 21 % (22-44); MD NO; MEAN CORPUSCULAR HEMOGLOBIN 29.5 pg (27.5-34.5); MEAN CORPUSCULAR HGB CONC 33.1 g/dL (33.2-36.2); MEAN CORPUSCULAR VOLUME 89.2 fL (81-97); MEAN PLATELET VOLUME 8.5 fL (7.4-10.4); MONOCYTES # (AUTO) 0.78 x10^3/uL (0.2-0.8); MONOCYTES % (AUTO) 6 % (2-9); NEUTROPHILS # (AUTO) 8.83 x10^3/uL (1.8-6.8); NEUTROPHILS % (AUTO) 71 % (42-75); PLATELET COUNT 260 x10^3/uL (130-400); RED CELL DISTRIBUTION WIDTH 14.4 % (9.4-14.8)
[2018-08-27 21:27] LABS: ALBUMIN 3.4 g/dL (3.4-5.0); ANION GAP 5 mmol/L (5-15); CALCIUM 8.2 mg/dL (8.5-10.1); CHLORIDE 108 mmol/L (98-107)
[2018-08-27 21:31] LABS: ALANINE AMINOTRANSFERASE 22 U/L (12-78); ALKALINE PHOSPHATASE 110 U/L (45-117); BILIRUBIN,TOTAL < 0.1 mg/dL (0.2-1.0); TOTAL PROTEIN 6.9 g/dL (6.4-8.2); TROPONIN I < 0.015 ng/mL (0.000-0.045)
--- NOTE | 2018-08-27 21:46 | NUR ---
SPOUSE HELPING PT VOID AT THIS TIME. CONNECTED TO MONITORS. VSS. NO NEEDS AT THIS TIME. CALL LIGHT WITHIN REACH.
--- NOTE | 2018-08-27 22:50 | NUR ---
UA REMAINS UNCOLLECTED. MD UPDATED. PER MD, WILL STILL ADMIT. WILL PASS ALONG IN REPORT THAT UA STILL NEEDS TO BE COLLECTED. PT RESTING IN BED. VSS. CALL LIGHT WITHIN REACH. NO NEEDS AT THIS TIME.
[2018-08-27] MEDS ORDERED: ONDANSETRON 2MG/ML, 2ML IVPush PRN (23:00)
[2018-08-27] MEDS ORDERED: MORPHINE SULFATE 4 MG/ML, 1ML IVPush PRN (23:00)
--- NOTE | 2018-08-27 23:18 | NUR ---
report to [address] [place] [id number]
[2018-08-27 23:55] VITALS: BP 93/58
[2018-08-28] MEDS ORDERED: POLYETHYLENE GLYCOL 17 GM PACKET PO PRN (01:30)
[2018-08-28] MEDS ORDERED: BISACODYL 10 MG SUPP PR PRN (01:30)
[2018-08-28] MEDS ORDERED: ONDANSETRON ODT 4 MG PO PRN (01:30)
[2018-08-28] MEDS: AMPICILLIN 1 GM in SODIUM CHLORIDE 0.9% 100 ML IV SCH ×4 (02:04→19:58)
[2018-08-28] MEDS: SODIUM CHLORIDE 0.9% 1,000 ML IV SCH ×3 (02:04→23:44)
[2018-08-28 03:02] VITALS: BP 102/66
[2018-08-28] MEDS: PREGABALIN 200 MG CAPSULE PO SCH ×4 (03:28→19:58)
[2018-08-28] MEDS: HEPARIN 5,000 UNITS/ML, 1ML SQ SCH ×3 (03:28→18:23)
[2018-08-28] MEDS: GABAPENTIN 300 MG CAPSULE PO SCH ×4 (03:28→19:58)
[2018-08-28] MEDS: NICOTINE 14MG/24 HR PATCH.TD24 TD SCH (03:29)
[2018-08-28 04:30] LABS: MICROSCOPIC NOT IND
[2018-08-28 04:32] LABS: CULTURE INDICATED? NO
[2018-08-28 05:47] LABS: BASOPHILS # (AUTO) 0.09 x10^3/uL (0-0.1); BASOPHILS % (AUTO) 1 % (0-1); EOSINOPHILS # (AUTO) 0.24 x10^3/uL (0-0.4); EOSINOPHILS % (AUTO) 2 % (1-7); LYMPHOCYTES # (AUTO) 3.21 x10^3/uL (1-3.4); LYMPHOCYTES % (AUTO) 29 % (22-44); MD NO; MEAN CORPUSCULAR HEMOGLOBIN 29.8 pg (27.5-34.5); MEAN CORPUSCULAR HGB CONC 33.3 g/dL (33.2-36.2); MEAN CORPUSCULAR VOLUME 89.4 fL (81-97); MEAN PLATELET VOLUME 8.5 fL (7.4-10.4); MONOCYTES # (AUTO) 0.78 x10^3/uL (0.2-0.8); MONOCYTES % (AUTO) 7 % (2-9); NEUTROPHILS # (AUTO) 6.71 x10^3/uL (1.8-6.8); NEUTROPHILS % (AUTO) 61 % (42-75); PLATELET COUNT 212 x10^3/uL (130-400); RED BLOOD COUNT 4.87 x10^6/uL (4.38-5.82); RED CELL DISTRIBUTION WIDTH 14.4 % (9.4-14.8)
[2018-08-28 05:55] LABS: CHLORIDE 111 mmol/L (98-107)
[2018-08-28 06:03] LABS: ALANINE AMINOTRANSFERASE 17 U/L (12-78); ALBUMIN 2.9 g/dL (3.4-5.0); ALKALINE PHOSPHATASE 87 U/L (45-117); ANION GAP 7 mmol/L (5-15); BILIRUBIN,TOTAL 0.3 mg/dL (0.2-1.0); CALCIUM 7.9 mg/dL (8.5-10.1); TOTAL PROTEIN 5.9 g/dL (6.4-8.2)
[2018-08-28 06:57] VITALS: BP 119/82
[2018-08-28] MEDS: SENNA/DOCUSATE TABLET PO SCH (08:08)
[2018-08-28] MEDS: TAMSULOSIN 0.4 MG CAP.ER.24H PO SCH (08:08)
[2018-08-28] MEDS: AMLODIPINE 5 MG TABLET PO SCH (08:08)
[2018-08-28] MEDS: FLUOXETINE HCL 20 MG CAPSULE PO SCH (08:08)
[2018-08-28] MEDS: CHOLECALCIFEROL 1,000 UNIT TABLET PO SCH (08:08)
[2018-08-28] MEDS: METHADONE 40 MG TABLET.SOL PO SCH (08:14)
[2018-08-28] MEDS: ACETAMINOPHEN 325 MG TABLET PO PRN (12:51)
[2018-08-28 13:00] VITALS: BP 109/58
[2018-08-28] MEDS ORDERED: KETOROLAC 30 MG/1 ML IVPush ONE (15:30)
[2018-08-28 20:18] VITALS: BP 117/76
[2018-08-28] MEDS: KETOROLAC 30 MG/1 ML IV PRN (22:14)
[2018-08-29] MEDS: ACETAMINOPHEN 325 MG TABLET PO PRN ×3 (01:12→20:59)
[2018-08-29] MEDS: OXYcodone/APAP 5/325MG TABLET PO PRN ×2 (01:12→05:42)
[2018-08-29] MEDS: HEPARIN 5,000 UNITS/ML, 1ML SQ SCH ×3 (01:12→18:14)
[2018-08-29 01:30] VITALS: BP 115/75
[2018-08-29] MEDS: AMPICILLIN 1 GM in SODIUM CHLORIDE 0.9% 100 ML IV SCH (04:28)
[2018-08-29] MEDS: KETOROLAC 30 MG/1 ML IV PRN ×4 (04:30→23:52)
[2018-08-29] MEDS: NICOTINE 14MG/24 HR PATCH.TD24 TD SCH (04:34)
[2018-08-29] MEDS: GABAPENTIN 300 MG CAPSULE PO SCH ×2 (06:42→10:17)
[2018-08-29 07:45] VITALS: BP 135/83
[2018-08-29] MEDS ORDERED: OMNIPAQUE 350 MG/ML, 75ML BOTTLE ONE (10:09)
[2018-08-29] MEDS: SENNA/DOCUSATE TABLET PO SCH (10:17)
[2018-08-29] MEDS: FLUOXETINE HCL 20 MG CAPSULE PO SCH (10:17)
[2018-08-29] MEDS: METHADONE 40 MG TABLET.SOL PO SCH (10:18)
[2018-08-29] MEDS: PREGABALIN 200 MG CAPSULE PO SCH ×3 (10:18→20:59)
[2018-08-29] MEDS: TAMSULOSIN 0.4 MG CAP.ER.24H PO SCH (10:18)
[2018-08-29] MEDS: AMLODIPINE 5 MG TABLET PO SCH (10:18)
[2018-08-29] MEDS: CHOLECALCIFEROL 1,000 UNIT TABLET PO SCH (10:18)
[2018-08-29] MEDS: SODIUM CHLORIDE 0.9% 1,000 ML IV SCH (14:41)
[2018-08-29 14:50] VITALS: BP 133/79
[2018-08-29 20:10] VITALS: BP 120/82
[2018-08-30] MEDS: SODIUM CHLORIDE 0.9% 1,000 ML IV SCH (01:03)
[2018-08-30 02:00] VITALS: BP 119/84
[2018-08-30] MEDS: HEPARIN 5,000 UNITS/ML, 1ML SQ SCH ×2 (02:40→10:22)
[2018-08-30] MEDS: NICOTINE 14MG/24 HR PATCH.TD24 TD SCH (02:40)
[2018-08-30] MEDS: KETOROLAC 30 MG/1 ML IV PRN ×2 (06:42→12:06)
[2018-08-30 07:59] VITALS: BP 147/92
[2018-08-30] MEDS: TAMSULOSIN 0.4 MG CAP.ER.24H PO SCH (10:21)
[2018-08-30] MEDS: PREGABALIN 200 MG CAPSULE PO SCH (10:21)
[2018-08-30] MEDS: FLUOXETINE HCL 20 MG CAPSULE PO SCH (10:21)
[2018-08-30] MEDS: CHOLECALCIFEROL 1,000 UNIT TABLET PO SCH (10:21)
[2018-08-30] MEDS: SENNA/DOCUSATE TABLET PO SCH (10:21)
[2018-08-30] MEDS: METHADONE 40 MG TABLET.SOL PO SCH (10:21)
[2018-08-30] MEDS: AMLODIPINE 5 MG TABLET PO SCH (10:21)
[2018-08-30] MEDS ORDERED: LACTULOSE 10 GM/15 ML UDC PO ONE (10:30)
[2018-08-30] MEDS ORDERED: NICO-486 TD (11:55)
[2018-08-30 13:46] VITALS: BP 164/80
== END 2018-08-30 15:00 | DRG 59 ==
LOC: ED 22:40 → EDIP 22:48 → 4NOR 23:25
PROVIDERS: ADMIT Internal Medicine; ATTEND Internal Medicine
DX: G35 Multiple sclerosis (principal); F11.20 Opioid dependence, uncomplicated; Z68.1 Body mass index [BMI] 19.9 or less, adult; N39.0 Urinary tract infection, site not specified; E46 Unspecified protein-calorie malnutrition; Z87.440 Personal history of urinary (tract) infections; R62.7 Adult failure to thrive; K02.9 Dental caries, unspecified; F17.210 Nicotine dependence, cigarettes, uncomplicated; Z68.20 Body mass index [BMI] 20.0-20.9, adult; G62.9 Polyneuropathy, unspecified; N40.0 Benign prostatic hyperplasia without lower urinary tract symptoms; F32.9 Major depressive disorder, single episode, unspecified; G89.29 Other chronic pain; Z80.1 Family history of malignant neoplasm of trachea, bronchus and lung; Z83.3 Family history of diabetes mellitus; Z88.8 Allergy status to other drugs, medicaments and biological substances
CPT/HCPCS: 36415; 70487; 71045; 80053; 81003; 84443; 84484; 85025; 93005; 99285; G0378; J0290; J1644; J1885; J2930; Q9967; J7030

== ENCOUNTER 2019-11-17 13:34 | Emergency (ER) | payer MEDICARE, MEDICAID ==
[~2019-11-17] VITALS: Ht 180.3 cm; Wt 73.0 kg
[~2019-11-17 13:34] MED LIST changes: -HYDR-3307 PO; +HYDR-36 PO
--- NOTE | 2019-11-17 14:26 | NUR ---
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
--- NOTE | 2019-11-17 15:30 | NUR ---
PT RESTING WITH EYES CLOSED. MONITOR IN PLACE. 3P'S ADDRESSED.
[2019-11-17 17:00] VITALS: BP 115/69
--- NOTE | 2019-11-17 17:08 | NUR ---
PT ASSISTED TO WHEEL CHAIR. DC INSTRUCTION'S EXPLAINED. PT VERBALIZES UNDERSTANDING. TAXI VOUCHER PROVIDED TO [facility].
== END 2019-11-17 17:28 | disposition home or self-care (01) ==
LOC: ED 15:07
DX: G35 Multiple sclerosis (principal); F17.200 Nicotine dependence, unspecified, uncomplicated
CPT/HCPCS: 99283